=== PATIENT | male | born 1955 | race Caucasian/White ===

== ENCOUNTER 2016-09-08 15:12 | Emergency (ER) | payer BC ==
--- NOTE | 2016-09-26 15:51 | ER ---
ADMIT: 09/08/2016 RM/LOC: ER [facility] MR#: [id number] [id number] [place], [place] [id number] FABIOSHAREENE [address] [place] [address] Emergency Room Report SEX: M AGE: 61 : 1955 DATE: 09/08/2016 Patient is a 61-year-old male, presents to emergency room complaining of abdominal pain, mainly on the right flank. He said it started in the back and now it is the groin area. He also complains of having some between the shoulder pain, but he seems pretty uncomfortable. He states that he has had kidney stones in the past, history of GERD, and ADD. He drinks a lot of monster drinks, coffee. says he hardly drinks water. MEDICATIONS: He is on: 1. Cymbalta. 2. Aspirin. 3. Zantac. PHYSICAL EXAMINATION: VITAL SIGNS: Blood pressure 137/87, heart rate 56, respirations 16, temp 96.9, and O2 sats 100%. HEENT: Normal inspection. BACK: Costovertebral tenderness, right sided. SKIN: Good color and turgor. EXTREMITIES: Well perfused. NEURO: Oriented x4. LABORATORY DATA: CBC; white count 11.3. Glucose 114, amylase 37, and lipase 94. CT scan stone is in the bladder now. The patient was given a liter of fluids, Zofran, and morphine for pain control. CLINICAL IMPRESSION: Kidney stone. Sent home with a strainerMejia. Make sure that he does hydrate. I did spend quite a long time talking to him and his about the work of the kidney, adrenal glands, hydration, and the problem when people drink a lot of caffeinated drinks and soda drinks. The patient will be discharged, follow up with his primary provider. Instructions given. JOHN Garcia / Se Velázquez MD / modl JOB #: [id number] CC: eS Velázquez MD, Attending Physician Stanley Bolaños MD, Family Physician
== END 2016-09-08 19:20 | disposition home or self-care (01) ==
LOC: ER 15:12
DX: N13.2 Hydronephrosis with renal and ureteral calculous obstruction (principal); K21.9 Gastro-esophageal reflux disease without esophagitis; F98.8 Other specified behavioral and emotional disorders with onset usually occurring in childhood and adolescence; Z79.82 Long term (current) use of aspirin; Z79.899 Other long term (current) drug therapy